=== PATIENT | female | born 1940 | race Two or more races ===

== ENCOUNTER → 2025-06-02 | Emergency (ER) | payer OTHER ==
[~2025-06-02] VITALS: Ht 149.9 cm; Wt 53.5 kg
[~2025-06-02] MED LIST: DEXAMETHASONE SODIUM PHOSPHATE 4 MG/ML VIAL IM ONE; DEXAMETHASONE SODIUM PHOSPHATE 4 MG/ML VIAL ONE; IRBESARTAN75 MG PO; KETOROLAC TROMETHAMINE 30 MG VIAL IM ONE; KETOROLAC TROMETHAMINE 30 MG VIAL ONE; TOPROL XL50 M1
[2025-06-02 22:21] VITALS: BP 160/70; O2SAT 98
[2025-06-03 00:32] LABS: BASO % 0.7 % (0.1-1.2); EOS # 0.22 (0.04-0.54); EOS % 2.5 % (0.7-7.0); LYMPH # 3.08 (1.18-3.74); LYMPH % 35.0 % (19.3-53.1); MEAN PLATELET VOLUME 10.80 fl (9.4-12.4); MONO # 0.48 (0.24-0.82); MONO % 5.4 % (4.7-12.5); NEUT # 4.95 (1.56-6.13); NEUT % 56.2 % (34.0-71.1); RED CELL DISTRIBUTION WIDTH 14.6 % (11.6-14.4)
[2025-06-03 00:37] LABS: ERYTHROCYTE SEDIMENTATION RATE 47 mm/hr (0-30)
[2025-06-03 00:44] LABS: D DIMER 0.52 MG/L; INR 0.97
[2025-06-03 01:26] LABS: ALT/SGPT 24 U/L (12-78); AST/SGOT 25 U/L (15-37); BILIRUBIN TOTAL 0.24 mg/dL (0.3-1.2); BUN CREA RATIO 25 (7.0-25.0); CREATININE SERUM 0.93 mg/dL (0.55-1.02); GFR 57.58; GLOBULINA 3.7 G/DL (2.4-3.5); GLUCOSE FASTING 104 mg/dL (65-100); OSMOLALITY SERUM 283 MOSM/KG (275-295)
== END | disposition left against medical advice (07) ==
LOC: ER 21:37
DX: M79.662 Pain in left lower leg (principal); I10 Essential (primary) hypertension
CPT/HCPCS: 96372; 99282; J1100; J1885